=== PATIENT | male | born 1955 | race Caucasian/White ===

== ENCOUNTER 2020-04-09 20:09 | Emergency (ER) | payer MEDICARE, SELFPAY ==
--- NOTE | ~2020-04-09 | XR_ITS ---
EXAMINATION: XR chest 2V DATE: 04/09/2020 23:07 INDICATION: Abdominal pain and constipation, history of asthma TECHNIQUE: PA and lateral views of the chest are obtained. COMPARISON: None available FINDINGS: The lungs are free of acute opacities. There is no pleural effusion or pneumothorax. The ca rdiomediastinal silhouette is normal. There is mild thoracic spondylosis. IMPRESSION: 1. No acute cardiopulmonary abnormality. Reviewed, dictated and finalized at location A.
--- NOTE | ~2020-04-09 | CT_ITS ---
EXAMINATION: CT abdomen pelvis w con INDICATION: Left lower quadrant pain TECHNIQUE: Computed tomographic images of the abdomen and pelvis were obtained after the administrati on of 100 cc of Omnipaque 350 intravenous contrast. The dose-length product (DLP) was 1643.15 mGy-cm. Automated exposure control and iterative reconstruction technique were employed. COMPARISON: None available FINDINGS: Minimal dependent atelectasis is present in the lung bases. The heart size is normal. Punct ate calcifications in an otherwise normal spleen likely represent healed granulomatous disease. The l iver, pancreas, and adrenal glands are normal. Stones are present in the nondistended gallbladder. Th ere is a 1 mm stone in the left distal ureter. In addition, there is a 3 mm stone in the urinary blad raquel, likely recently passed. There is mild left hydroureteronephrosis. Multiple stones are present in the right renal pelvis which is mildly dilated. There is a questionable right UPJ stricture. In tabitha tion, there are multiple stones in both kidneys which measure up to 1.2 cm on the left and 7 mm on th e right. No pathologically enlarged abdominal or pelvic lymph nodes are identified. There is no free intraperitoneal gas or evidence of bowel obstruction. The appendix is normal. There is moderate lumba r spondylosis. A tiny fat-containing umbilical hernia is noted. IMPRESSION: 1. 1 mm stone in the distal left ureter and 3 mm stone of the urinary bladder with mild left hydroure teronephrosis. Bladder stone has likely recently passed. 2. Bilateral nephrolithiasis. 3. Multiple stones in the dilated right renal pelvis and proximal ureter with possible UPJ stricture. 4. Cholelithiasis without evidence of cholecystitis. Reviewed, dictated and finalized at location A. IMPRESSION: 1. 1 mm stone in the distal left ureter and 3 mm stone of the urinary bladder w ith mild left hydroureteronephrosis. Bladder stone has likely recently passed. 2. Bilateral nephrolithiasis. 3. Multiple stones in the dilated right renal pelvis and proximal ureter with p ossible UPJ stricture. 4. Cholelithiasis without evidence of cholecystitis.
[2020-04-09 20:31] VITALS: BP 178/106; PULSE 84; RESP 20; TEMP 36.7; O2SAT 97
[2020-04-09 21:32] VITALS: BP 192/111; PULSE 83; RESP 18; O2SAT 100
[2020-04-09 21:35] LABS: Basophils Percent Auto 0.4 % (0.2-1.2); Eosinophils Absolute Auto 0.1 K/mm3 (0-0.3); Eosinophils Percent Auto 1.2 % (0-4.4); Hematocrit 48.1 % (42.0-52.0); Hemoglobin 15.2 g/dL (14.0-18.0); Immature Granulocyte Absolute 0.04 K/mm3 (0.00-0.031); Immature Granulocyte Percent A 0.4 % (0-0.5); Lymphocytes Percent Auto 8.5 % (18.3-44.2); Mean Corpuscular HGB Conc 31.6 g/dl (32-36); Mean Corpuscular Hemoglobin 26.5 pg (26-34); Mean Corpuscular Volume 83.9 fl (80-100); Mean Platelet Volume 10.7 fl (7.4-10.4); Monocytes Absolute Auto 0.4 K/mm3 (0.1-0.6); Monocytes Percent Auto 3.8 % (2.6-8.5); Neutrophils Absolute Auto 9.1 K/mm3 (1.3-6.7); Neutrophils Percent Auto 85.7 % (45.5-73.1); Platelet Count Result 265 k/mm3 (150-375); Red Blood Count 5.73 M/mm3 (4.6-6.20); Red Cell Distribution Width 14.6 % (11.5-14.5); White Blood Count 10.6 K/mm3 (4.5-10.0)
[2020-04-09 21:41] LABS: Add Urine Microscopic? YES; Amorphous Sediment Urine Few; Appearance Urine Cloudy (Clear); Bacteria Urine Trace /hpf; Bilirubin Urine Negative (Negative); Blood Urine 3+ (Negative); Color Urine Yellow (Yellow); Glucose Urine UA Negative (Negative); Ketones Urine 1+ mg/dL (Negative); Leukocyte Esterase Ur Negative LEU/UL (Negative); Mucus Urine Moderate /lpf; Nitrate Urine Negative (Negative); Protein Urine 2+ mg/dL (Negative); RBC Urine >75 /hpf (0-2); Specific Grav Ur 1.018 (1.001-1.035); Urobilinogen Urine Negative mg/dL (<2.0)
[2020-04-09 21:48] LABS: Alanine Aminotransferase 28 U/L (4-50); Albumin Level 4.4 g/dL (3.5-5.1); Alkaline Phosphatase 63 U/L (38-126); Anion Gap 9 mmol/L (8-16); Aspartate Amino Transferase 33 U/L (17-59); Bilirubin,Total 0.7 mg/dL (0.2-1.3); Blood Urea Nitrogen 18 mg/dL (9-20); Calcium 9.3 mg/dL (8.4-10.2); Carbon Dioxide 29 mmol/L (22-30); Chloride 102 mmol/L (98-107); Estimated CRCL calculation 100 ml/min; Estimated Glomerular Filt Rate > 60; Glucose 154 mg/dL (75-110); Lipase 84 U/L (23-300); Potassium 4.4 mmol/L (3.4-5.0); Sodium 140 mmol/L (137-145)
--- NOTE | 2020-04-09 21:54 | ED.ABDPAIN ---
HPI - Abdominal Pain General Chief Complaint: Abdominal Pain Stated Complaint: constipation, gastrointestinal pain Time Seen by Provider: 04/09/20 21:45 History of Present Illness HPI narrative: Patient is a 64-year-old male who presents to the ER with lower abdominal pain. Left lower quadrant sudden onset today. Sharp. He has an sensation that he needs to poop. Had some loose stools yesterday. No previous history of diverticulitis. No urinary symptoms including hematuria/dysuria/urinary frequency. Patient reports history of cough over the last couple weeks but no fevers or chills or sweats. No runny nose or body aches. Related Data Home Medications Medication Instructions Recorded Confirmed albuterol sulfate [ProAir HFA] 1 puff INHALATION DAILY 04/09/20 04/09/20 budesonide-formoterol [Symbicort] 1 puff INHALATION DAILY 04/09/20 04/09/20 insulin glargine [Lantus Solostar SUBCUT 04/09/20 U-100 Insulin] insulin lispro [Humalog KwikPen unit SUBCUT 04/09/20 Insulin] lisinopril 10 mg PO DAILY 04/09/20 04/09/20 metformin mg PO 04/09/20 montelukast 10 mg PO DAILY 04/09/20 04/09/20 pravastatin 80 mg PO DAILY 04/09/20 04/09/20 Allergies Allergy/AdvReac Type Severity Reaction Status Date / Time No Known Allergies Allergy Verified 04/09/20 20:34 Review of Systems Review of Systems: All systems reviewed & are unremarkable except as noted in HPI and below Constitutional: Constitutional: Denies chills, Denies fever(s) and Denies weakness ENT: Denies nasal congestion and Denies sore throat Respiratory: Respiratory: Reports cough, Denies dyspnea and Denies wheezing Gastrointestinal: Gastrointestinal: Reports abdominal pain, Denies constipation, Reports diarrhea, Denies nausea and Denies vomiting Genitourinary: Genitourinary: Denies hematuria, Denies dysuria and Denies urinary frequency [facility] Past Medical History Medical History (Updated 04/09/20 @ 23:16 by Errol Hinton MD) Diabetes type 2, controlled Hypertension Surgical History Surgical History (Updated 04/09/20 @ 21:57 by Errol Hinton MD) No history of previous surgery Social History Social History (Updated 04/09/20 @ 21:57 by Errol Hinton MD) Smoking status: Never smoker Substance use: never Exam Narrative: Exam Narrative: GENERAL: Well-appearing, morbidly obese, and in no acute distress. HEAD: Normocephalic, atraumatic. ENT: Mucous membranes moist. CHEST: Clear to auscultation. No respiratory distress. HEART: Regular rate and rhythm. Normal peripheral pulses. ABDOMEN: Soft, tender palpation left lower quadrant without guarding, nondistended, normal active bowel sounds. EXTREMITIES: Normal range of motion. No edema. SKIN: Warm, dry, no rash. NEURO: Alert and oriented x3. PSYCH: Normal mood and affect. Course Vital Signs Vital signs: Vital Signs Temperature 98.0 F 04/09/20 20:31 Pulse Rate 84 04/09/20 20:31 Respiratory Rate 20 04/09/20 20:31 Blood Pressure 178/106 H 04/09/20 20:31 Pulse Oximetry 97 04/09/20 20:31 Temperature 98.0 F 04/09/20 20:31 Pulse Rate 83 04/09/20 21:32 Respiratory Rate 18 04/09/20 21:32 Blood Pressure 192/111 H 04/09/20 21:32 Pulse Oximetry 100 04/09/20 21:32 MDM - Abdominal Pain Lab Data Result diagrams: 04/09/20 21:28 04/09/20 21:28 Labs: Lab Results 04/09/20 04/09/20 04/09/20 Range/Units 21:28 21:28 21:28 WBC 10.6 H (4.5-10.0) K/mm3 RBC 5.73 (4.6-6.20) M/mm3 Hgb 15.2 (14.0-18.0) g/dL Hct 48.1 (42.0-52.0) % MCV 83.9 (80-100) fl MCH 26.5 (26-34) pg MCHC 31.6 L (32-36) g/dl RDW 14.6 H (11.5-14.5) % Plt Count 265 (150-375) k/mm3 MPV 10.7 H (7.4-10.4) fl Immature Gran % (Auto) 0.4 (0-0.5) % Neut % (Auto) 85.7 H (45.5-73.1) % Lymph % (Auto) 8.5 L (18.3-44.2) % Edgar % (Auto) 3.8 (2.6-8.5) % Eos % (Auto) 1.2 (0-4.4) % Baso % (Auto
[2020-04-09] MEDS: MORPHINE SULFATE 4 MG/ML INJ IV PUSH (21:58)
[2020-04-09 23:29] VITALS: BP 156/96; PULSE 82; RESP 18; O2SAT 99
== END 2020-04-09 23:30 | disposition home or self-care (01) ==
PROVIDERS: Emergency Provider Emergency Medicine
DX: N13.2 Hydronephrosis with renal and ureteral calculous obstruction (principal); I10 Essential (primary) hypertension; E11.9 Type 2 diabetes mellitus without complications; Z79.84 Long term (current) use of oral hypoglycemic drugs; Z79.4 Long term (current) use of insulin
CPT/HCPCS: 36415; 71046; 74177; 80053; 81001; 83690; 85025; 87086; 96374; 99284; J2270; Q9967